=== PATIENT | female | born 1995 | race African-American/Black ===

== ENCOUNTER 2021-02-12 15:38 | Emergency (ER) | payer OTHER, SELFPAY ==
[2021-02-12 15:51] VITALS: BP 115/64; PULSE 91; RESP 16; TEMP 36.9; O2SAT 100
--- NOTE | 2021-02-12 16:03 | ED.SKABFB ---
HPI - Skin/Abscess/Foreign Bdy General Chief complaint: Skin/Abscess/Foreign Body Stated complaint: rash Time Seen by Provider: 02/12/21 16:03 Source: patient Mode of arrival: ambulatory Limitations: no limitations History of Present Illness HPI narrative: She Esquivel is a 25 yo female has a rash around her elbows and what appears to look like welts on her forearms for the last 10 days, some of them are getting better and others are new. She denies any allergies or any skin illnesses that have been diagnosed Related Data Home Medications Medication Instructions Recorded Confirmed Nasal Inhaler 02/12/21 Nexplanon 02/12/21 Allergies Allergy/AdvReac Type Severity Reaction Status Date / Time No Known Drug Allergies Allergy Unknown Verified 02/27/18 12:15 Review of Systems Review of Systems: Narrative: CONSTITUTIONAL: Denies fever, chills, sweats. EYES: Denies visual changes, redness, discharge. ENT: Denies rhinorrhea, congestion, sore throat, otalgia. CARDIOVASCULAR: Denies chest pain, palpitations, edema. RESPIRATORY: Denies dyspnea, wheezing, cough GASTROINTESTINAL: Denies abdominal pain, nausea, vomiting, diarrhea. GENITOURINARY: Denies dysuria, hematuria, abnormal discharge SKIN: Denies rash or itching. Has patches of small lesions and patches of what appears to be hives bilateral forearms 1 on right side NEUROLOGIC: Denies numbness, or focal weakness. PSYCHIATRIC: Denies anxiety or depression. [facility] Past Medical History Medical History No acute medical problems Family History Family History Other Diabetes mellitus Social History Social History (Updated 02/12/21 @ 16:10 by Nava Ramirez CNP) Smoking status: Never smoker Alcohol intake: current Comments At time of signature, I agree with nursing past medical, surgical, social and family history. There is no relevant family history pertinent to the presenting complaint. Exam Narrative: Exam Narrative: GENERAL: This is a well-nourished, well-developed patient, in mild distress. HEAD: normocephalic, atraumatic. EYES:Sclera clear/white. Vision is grossly intact. EARS: External ears normal,. Hearing grossly intact. NOSE: External nose normal without nasal discharge, nares without redness, no rhinorrhea. THROAT: Mucous membranes moist, NECK: Neck supple, CARDIOVASCULAR: Regular rate and rhythm without murmurs, gallops, or rubs. RESPIRATORY: Clear to auscultation. Breath sounds equal bilaterally. No wheezes, rales, or rhonchi. GASTROINTESTINAL: Abdomen soft, SKIN: warm, intact with large hive-like blotches on the forearms and on right neck and small pruritic rash around elbows NEURO: awake, alert, and oriented to person, place and time. There were no obvious focal neurologic abnormalities. Steady gait EXTREMITIES: Normal range of motion. BACK: Nontender without deformity Course Course Emergency Course: Patient states that lesion started about 10 days ago Started on Medrol, pepcid, Benadryl Follow-up with primary care physician as patient is interested in whether she has diabetes or not as runs in the family Vital Signs Vital signs: Vital Signs Temperature 98.5 F 02/12/21 15:51 Pulse Rate 91 02/12/21 15:51 Respiratory Rate 16 02/12/21 15:51 Blood Pressure 115/64 02/12/21 15:51 Pulse Oximetry 100 02/12/21 15:51 Temperature 98.5 F 02/12/21 15:51 Pulse Rate 91 02/12/21 15:51 Respiratory Rate 16 02/12/21 15:51 Blood Pressure 115/64 02/12/21 15:51 Pulse Oximetry 100 02/12/21 15:51 MDM - Skin/Abscess/Foreign Bdy Differential Diagnosis Differential diagnosis: Likely abscess of skin or subcutaneous tissue, urticaria, insect bites and contact dermatitis Critical Care Time Critical Care Time Critical Care Time: No Discharge Plan Discharge Clinical Impression: Urticaria
== END 2021-02-12 16:17 | disposition home or self-care (01) ==
PROVIDERS: Emergency Provider Nurse Practitioner; PCP Physician Assistant
DX: L50.9 Urticaria, unspecified (principal); J45.909 Unspecified asthma, uncomplicated
CPT/HCPCS: 99213; G0463

== ENCOUNTER 2022-07-16 16:07 | Emergency (ER) | payer OTHER, SELFPAY ==
--- NOTE | 2022-07-16 16:13 | ED.URI ---
HPI - URI/Sore Throat General Chief Complaint: Upper Respiratory Infection Stated Complaint: Sore Throat Time Seen by Provider: 07/16/22 16:37 Source: patient and RN notes reviewed Mode of arrival: ambulatory Limitations: no limitations History of Present Illness HPI Narrative: 27-year-old female presents concern for 4 day history of sore throat, headache, bad breath, foul taste in her mouth. She denies cough, runny nose, stuffy nose, fever. 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 She denies drooling or difficulty swallowing MD elicited complaint: sore throat Related Data Home Medications Medication Instructions Recorded Confirmed Nexplanon 02/12/21 Allergies Allergy/AdvReac Type Severity Reaction Status Date / Time No Known Drug Allergies Allergy Unknown Other Verified 07/16/22 16:16 Review of Systems Review of Systems: CONSTITUTIONAL: Reports malaise. Denies chills, sweats, or fever. EYES: Denies visual changes, redness, or discharge. ENT: Denies rhinorrhea, congestion, sinus pain, otalgia. Reports sore throat. CARDIOVASCULAR: Denies chest pain, palpitations, or edema. RESPIRATORY: Denies cough. Denies dyspnea. GASTROINTESTINAL: Denies abdominal pain, nausea, vomiting, diarrhea SKIN: Denies rash or itching. MUSCULOSKELETAL: Reports myalgia. NEUROLOGIC: Reports headache. All systems reviewed & are unremarkable except as noted in HPI and below PMFSH Past Medical History Medical History No acute medical problems Family History Family History Other Diabetes mellitus Social History Social History (Updated 02/12/21 @ 16:10 by Nava Ramirez, [place]) Smoking status: Never smoker Alcohol intake: current Comments At time of signature, agree with nursing past medical, surgical, social and family history. There is no relevant family history pertinent to the presenting complaint Exam Narrative: GENERAL: Well-appearing, well-nourished, and in no acute distress. HEAD: Normocephalic EYES: PERRLA, conjunctivae clear ENT: Nares clear, no discharge. Mucous membranes moist. TM pearly gonzalez with dull light reflex bilaterally; no tragal tenderness. Oropharynx erythematous without lesions. Tonsils enlarged, 3+ and with copious white exudate, no drooling, no hoarseness, no trismus, uvula midline. NECK: Supple. No lymphadenopathy CHEST: Clear to auscultation, breath sounds equal. No wheezing, rhonchi, rales, or stridor. No respiratory distress, speaks in full sentences. HEART: Regular rate and rhythm. No murmur heard. SKIN: Warm, dry, no rash. NEURO: Alert and oriented x3. PSYCH: Normal mood and affect Course Course Emergency Course: Patient is aware of diagnosis, understands and agrees to treatment plan. Anticipatory guidance given. Patient agrees to follow-up as directed and is aware of reasons to seek care at the emergency department. Portions of this record may have been created with voice recognition software Level of Care: Express Care Visit Vital Signs Vital signs: Reviewed. MDM - URI/Sore Throat MDM Narrative Medical decision making narrative: Differential diagnosis considered: Lopez virus, strep pharyngitis, allergic rhinitis, upper respiratory tract infection, sinusitis, rhinosinusitis, nasopharyngitis. viral pharyngitis, otitis media, otitis externa, pneumonia, bronchitis, viral cough syndrome, viral syndrome, and influenza. Exam findings show no acute concerns or changes; patient is non-toxic appearing and is in no distress. Patient is appropriate for outpatient treatment and follow-up. Lab Data Attestation: I reviewed the patient's lab results. Critical Care Time Critical Care Time Critical Care Time: No Discharge Plan Discharge Clinical Impression: Acute tonsillitis Patient Disposition: Home, Self-Care Condition: Stable Instructions: Antib
[2022-07-16 16:14] VITALS: BP 107/64; PULSE 77; RESP 16; TEMP 36.9; O2SAT 99
== END 2022-07-16 16:50 | disposition home or self-care (01) ==
PROVIDERS: Emergency Provider Nurse Practitioner; PCP Physician Assistant
DX: J03.90 Acute tonsillitis, unspecified (principal); J45.909 Unspecified asthma, uncomplicated
CPT/HCPCS: 87081; 87880; 99213; G0463

== ENCOUNTER 2022-09-08 11:31 | Emergency (ER) | payer OTHER, SELFPAY ==
--- NOTE | 2022-09-08 11:40 | ED.URI ---
HPI - URI/Sore Throat General Chief Complaint: Upper Respiratory Infection Stated Complaint: sore throat / left knee pain Time Seen by Provider: 09/08/22 12:07 Source: patient and RN notes reviewed Mode of arrival: ambulatory Limitations: no limitations History of Present Illness HPI Narrative: 27-year-old female presents concern for day history of sore throat with white spots on her tonsils, pain in the right ear, painful swallowing. Reports she also fell 4 days ago and has had left knee pain. She denies swelling, bruising to the knee. She denies taking any medications other than NyQuil. MD elicited complaint: cough and sore throat Related Data Allergies Allergy/AdvReac Type Severity Reaction Status Date / Time No Known Drug Allergies Allergy Unknown Other Verified 09/08/22 11:43 Review of Systems Review of Systems: CONSTITUTIONAL: Reports malaise. Denies chills, sweats, or fever. EYES: Denies visual changes, redness, or discharge. ENT: Denies rhinorrhea, congestion, sinus pain. Reports otalgia and sore throat. CARDIOVASCULAR: Denies chest pain, palpitations, or edema. RESPIRATORY: Denies cough. Denies dyspnea. GASTROINTESTINAL: Denies abdominal pain, nausea, vomiting, diarrhea SKIN: Denies rash or itching. MUSCULOSKELETAL: Denies myalgia. Reports left knee pain NEUROLOGIC: Denies headache. All systems reviewed & are unremarkable except as noted in HPI and below PMFSH Past Medical History Medical History No acute medical problems Family History Family History Other Diabetes mellitus Social History Social History (Updated 02/12/21 @ 16:10 by Nava Ramirez, [place]) Smoking status: Never smoker Alcohol intake: current Comments At time of signature, agree with nursing past medical, surgical, social and family history. There is no relevant family history pertinent to the presenting complaint Exam Narrative: GENERAL: Nontoxic appearing and in no acute distress. HEAD: Normocephalic EYES: PERRLA, conjunctivae clear ENT: Nares clear, no discharge. Mucous membranes moist. TM pearly gonzalez with dull light reflex bilaterally; no tragal tenderness. Oropharynx erythematous without lesions. Tonsils enlarged with exudate, no drooling, no hoarseness, no trismus, uvula midline. NECK: Supple. No lymphadenopathy CHEST: Clear to auscultation, breath sounds equal. No wheezing, rhonchi, rales, or stridor. No respiratory distress, speaks in full sentences. HEART: Regular rate and rhythm. No murmur heard. SKIN: Warm, dry, no rash. MUSC: Left knee without acute swelling, tenderness movement skin NEURO: Alert and oriented x3. PSYCH: Normal mood and affect Course Course Emergency Course: Patient is aware of diagnosis, understands and agrees to treatment plan. Anticipatory guidance given. Patient agrees to follow-up as directed and is aware of reasons to seek care at the emergency department. Portions of this record may have been created with voice recognition software Level of Care: Express Care Visit Vital Signs Vital signs: Reviewed. MDM - URI/Sore Throat MDM Narrative Medical decision making narrative: Differential diagnosis considered: Lopez virus, strep pharyngitis, allergic rhinitis, upper respiratory tract infection, sinusitis, rhinosinusitis, nasopharyngitis. viral pharyngitis, otitis media, otitis externa, pneumonia, bronchitis, viral cough syndrome, viral syndrome, and influenza. Exam findings show no acute concerns or changes; patient is non-toxic appearing and is in no distress. Patient is appropriate for outpatient treatment and follow-up. Lab Data Attestation: I reviewed the patient's lab results. Critical Care Time Critical Care Time Critical Care Time: No Discharge Plan Discharge Clinical Impression: Acute streptococcal pharyngitis, Knee pain Patient Disposition: Home, Self-Care
[2022-09-08 11:41] VITALS: BP 110/60; PULSE 96; RESP 14; TEMP 36.3; O2SAT 100
[2022-09-08 11:44] VITALS: BP 110/60; PULSE 96; RESP 14; TEMP 36.3; O2SAT 100
== END 2022-09-08 12:16 | disposition home or self-care (01) ==
PROVIDERS: Emergency Provider Nurse Practitioner; PCP Physician Assistant
DX: J02.0 Streptococcal pharyngitis (principal); M25.562 Pain in left knee
CPT/HCPCS: 87880; 99213; G0463

== ENCOUNTER 2022-11-13 21:05 | Emergency (ER) | payer OTHER, SELFPAY ==
--- NOTE | ~2022-11-13 | XR_ITS ---
EXAMINATION: XR foot LT min 3V DATE: 11/13/2022 22:23 INDICATION: Left foot pain TECHNIQUE: Dorsoplantar, lateral, and 2 oblique views of the left foot were obtained. COMPARISON: None FINDINGS: There appears to be dorsolateral subluxation of the third middle phalanx with respect to th e proximal phalanx. No fracture is identified. There is dorsal soft tissue swelling of the foot overl demetris the metatarsals. IMPRESSION: 1. Apparent dorsolateral subluxation of the third middle phalanx with respect to the proximal phalanx . Reviewed, dictated and finalized at location F. IMPRESSION: 1. Apparent dorsolateral subluxation of the third middle phalanx with respect t o the proximal phalanx.
--- NOTE | ~2022-11-13 | XR_ITS ---
EXAMINATION: XR toe 3rd LT min 2V DATE: 11/14/2022 00:29 INDICATION: Left third toe dislocation status post reduction. TECHNIQUE: 4 views of left third toe were obtained. COMPARISON: Left third toe radiographs 11/13/2022 FINDINGS: Bone alignment is normal. No fracture. Joint spaces are well maintained. IMPRESSION: 1. Normal alignment. Reviewed, dictated and finalized at location A. IMPRESSION: 1. Normal alignment.
[2022-11-13 21:06] VITALS: BP 118/63; PULSE 89; RESP 16; TEMP 36.7; O2SAT 100
--- NOTE | 2022-11-13 23:58 | PC.NURSE ---
Pt c/o left 3rd toe pain after she fell down the stairs. Small cut noted under her toe. 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
--- NOTE | 2022-11-13 23:58 | ED.LOWEXIN ---
HPI - Extremity Injury (Lower) General Chief Complaint: Extremity Injury, Lower Stated Complaint: left middle toe injury, fell down steps Time Seen by Provider: 11/13/22 23:52 History of Present Illness HPI Narrative: 27-year-old female here for evaluation of middle toe pain for the past several hours. Patient states that her pain began after she fell down several steps. She denies any other injury, no head injury or loss of consciousness. She has not taken any medicine for her pain. Reports deformity and pain to her middle toe. Related Data Allergies Allergy/AdvReac Type Severity Reaction Status Date / Time No Known Drug Allergies Allergy Unknown Other Verified 11/13/22 21:05 Review of Systems Review of Systems: Gen.: Denies fevers or chills Eyes: Denies eye pain or visual change ENT: Denies congestion Respiratory: Denies shortness of breath or cough CV: Denies chest pain or palpitations GI: Denies abdominal pain nausea, emesis or diarrhea denies burning, urgency, frequency or hematuria Musculoskeletal: Reports pain to middle toe Neuro: Denies numbness, tingling, weakness or focal weakness Skin: Denies rash Except as documented, all other systems reviewed and negative PMFSH Past Medical History Medical History No acute medical problems Family History Family History Other Diabetes mellitus Social History Social History (Updated 02/12/21 @ 16:10 by Nava Ramirez, [place]) Smoking status: Never smoker Alcohol intake: current Exam Narrative: APPEARANCE: Well appearing, no pain in distress, well-nourished. Head: Normocephalic and atraumatic. EYES: PERRLA/EOMI, conjunctivae clear NOSE: No nasal drainage EARS: External ear normal in appearance THROAT: Oropharynx is clear. Mucous membranes are moist. NECK: Supple. No adenopathy, no masses. RESPIRATORY: Airway patent, respirations nonlabored. Clear to auscultation bilaterally, no rales, rhonchi, wheezing. CARDIOVASCULAR: Regular rate and rhythm without murmurs, rubs, or gallops. ABDOMINAL: Normoactive bowel sounds. Soft, nontender, nondistended. No rebound tenderness or guarding. MUSCULOSKELETAL: Deformity to the right middle toe, no bony tenderness to palpation NEURO: Normal speech. No focal neurologic deficits. SKIN: There is a small abrasion to the plantar aspect of the base of third toe with no active bleeding PSYCHIATRIC: Normal affect/mood. Course Vital Signs Vital signs: Vital Signs Temperature 98.0 F 11/13/22 21:06 Pulse Rate 89 11/13/22 21:06 Respiratory Rate 16 11/13/22 21:06 Blood Pressure 118/63 11/13/22 21:06 Pulse Oximetry 100 11/13/22 21:06 Oxygen Delivery Room Air 11/13/22 21:06 Temperature 98.0 F 11/13/22 21:06 Pulse Rate 89 11/13/22 21:06 Respiratory Rate 16 11/13/22 21:06 Blood Pressure 118/63 11/13/22 21:06 Pulse Oximetry 100 11/13/22 21:06 Oxygen Delivery Room Air 11/13/22 21:06 Procedures Orthopedic Joint Reduction Joint #1: Orthopedic Joint Reduction Date: 11/14/22 Orthopedic Joint Reduction Time: 00:01 Time Out Performed: Yes Side: right Joint Reduction Location: toe Analgesia: none Pre-Procedure Neuro Vascular Exam: normal Technique used: traction/counter-traction Post-reduction neuro exam: intact Post-reduction vascular: intact Post Reduction X-Ray Obtained: Yes Post Reduction X-Ray Results: reduced Splint Applied: No (isa tape) Patient Tolerated Procedure: well MDM - Extremity Injury (Lower) MDM Narrative Medical decision making narrative: 27-year-old female here due to pain and deformity to the third toe after she fell down some several steps; she has evidence of a toe dorsolateral subluxation on plain films. This was reduced in the ED without difficulty, patient kimberly
== END 2022-11-14 01:06 | disposition home or self-care (01) ==
PROVIDERS: Emergency Provider Physician Assistant; PCP Physician Assistant
DX: S93.104A Unspecified dislocation of right toe(s), initial encounter (principal); W10.9XXA Fall (on) (from) unspecified stairs and steps, initial encounter
CPT/HCPCS: 28660; 73630; 73660; 99285

== ENCOUNTER 2023-03-29 10:31 | Emergency (ER) | payer OTHER, SELFPAY ==
[2023-03-29 10:48] VITALS: BP 113/60; PULSE 75; RESP 16; TEMP 36.8; O2SAT 98
--- NOTE | 2023-03-29 10:51 | ED.URI ---
HPI - URI/Sore Throat General Chief Complaint: Upper Respiratory Infection Stated Complaint: Sore Throat Time Seen by Provider: 03/29/23 10:52 History of Present Illness HPI Narrative: 27 y/o female presented for c/o sore throat with headache, body aches, chills for 3 days. Reports painful swallow. Reports white spots on tonsils. Denies sick contacts. Denies sob, wheezing, difficulty maintaining secretions, n/v/d. Taking ibuprofen. Related Data Allergies Allergy/AdvReac Type Severity Reaction Status Date / Time No Known Drug Allergies Allergy Unknown Other Verified 11/13/22 21:05 Review of Systems Review of Systems: CONSTITUTIONAL: reports body aches, fever, chills, sweats. EYES: Denies visual changes, redness, or discharge. ENT: reports sore throat Denies rhinorrhea, congestion, or otalgia. CARDIOVASCULAR: Denies chest pain, palpitations, or edema. RESPIRATORY: Denies dyspnea. GASTROINTESTINAL: Denies abdominal pain, nausea, vomiting, or diarrhea. SKIN: Denies rash, itching, or wounds. MUSCULOSKELETAL: Denies back pain, joint pain, or myalgia. NEUROLOGIC: reports headache PMFSH Past Medical History Medical History No acute medical problems Family History Family History Other Diabetes mellitus Social History Social History Smoking status: Never smoker Alcohol intake: current Exam Narrative: GENERAL: mildly Ill-appearing, no acute distress. EYES: conjunctivae clear ENT: Mucous membranes moist. TMs pearly gonzaelz with normal light reflex bilaterally; no tragal tenderness. Oropharynx erythematous, Tonsils enlarged 3+ with exudate. No drooling, no hoarseness, no trismus, uvula midline. No tripod positioning, hot potato voice, or soft palate swelling. NECK: Supple. No lymphadenopathy CHEST: Clear to auscultation, breath sounds equal. No respiratory distress, speaks in full sentences. HEART: Regular rate and rhythm. No murmur heard. SKIN: Warm, dry, no rash. NEURO: Alert and oriented x3. Course Course Emergency Course: Patient is aware of diagnosis, understands and agrees to treatment plan. Anticipatory guidance given. Patient agrees to follow-up as directed and is aware of reasons to seek care at the emergency department. Portions of this record may have been created with voice recognition software Level of Care: Express Care Visit Vital Signs Vital signs: Vital Signs Temperature 98.2 F 03/29/23 10:48 Pulse Rate 75 03/29/23 10:48 Respiratory Rate 16 03/29/23 10:48 Blood Pressure 113/60 03/29/23 10:48 Pulse Oximetry 98 03/29/23 10:48 Oxygen Delivery Room Air 03/29/23 10:48 Temperature 98.2 F 03/29/23 10:48 Pulse Rate 75 03/29/23 10:48 Respiratory Rate 16 03/29/23 10:48 Blood Pressure 113/60 03/29/23 10:48 Pulse Oximetry 98 03/29/23 10:48 Oxygen Delivery Room Air 03/29/23 10:48 MDM - URI/Sore Throat MDM Narrative Medical decision making narrative: POS strep result reviewed with pt. Advise supportive treatments. Patient is appropriate for outpatient treatment and follow-up. Differential Diagnosis Differential diagnosis: Likely upper respiratory infection, viral infection and pharyngitis Discharge Plan Discharge Clinical Impression: Strep pharyngitis Patient Disposition: Home, Self-Care Condition: Stable Instructions: Antibiotic Form, Strep Throat (ED) Additional Instructions: - Take the antibiotic as directed. Fever and sore throat typically resolve within one to three days. Most patients can return to work after 12 to 24 hours of antibiotic therapy, provided you are fever free and otherwise well. -Eat and drink things that are easy to swallow, like soft foods, cool liquids, tea with honey, or popsicles . -Salt water gargles and/or may use topical anes
== END 2023-03-29 11:02 | disposition home or self-care (01) ==
PROVIDERS: Emergency Provider Nurse Practitioner Family; PCP Physician Assistant
DX: J02.0 Streptococcal pharyngitis (principal)
CPT/HCPCS: 87880; 99213; G0463

== ENCOUNTER 2023-06-15 08:35 | Emergency (ER) | payer OTHER, SELFPAY ==
[2023-06-15 08:42] VITALS: BP 109/65; PULSE 77; RESP 16; TEMP 36.4; O2SAT 99
--- NOTE | 2023-06-15 08:54 | ED.URI ---
HPI - URI/Sore Throat General Chief Complaint: Upper Respiratory Infection Stated Complaint: Sore Throat Time Seen by Provider: 06/15/23 08:54 History of Present Illness HPI Narrative: 28-year-old female presented for complaint of sore throat, runny nose, and cough over the past week. Denies painful swallow or difficulty maintaining secretions. She denies shortness of breath, wheezing, nausea, vomiting, fevers or chills. She has taken Robitussin and NyQuil for symptoms. Denies sick contacts. Patient was last treated for strep pharyngitis 03/2023. Related Data Allergies Allergy/AdvReac Type Severity Reaction Status Date / Time No Known Drug Allergies Allergy Unknown Other Verified 06/15/23 08:40 Review of Systems Review of Systems: CONSTITUTIONAL: Denies body aches, fever, chills, or sweats. EYES: Denies visual changes, redness, or discharge. ENT: reports rhinorrhea, congestion, sore throat CARDIOVASCULAR: Denies chest pain, palpitations, or edema. RESPIRATORY: reports cough Denies dyspnea. GASTROINTESTINAL: Denies abdominal pain, nausea, vomiting, or diarrhea. SKIN: Denies rash, itching, or wounds. MUSCULOSKELETAL: Denies back pain, joint pain, or myalgia. NEUROLOGIC: Denies headache PMFSH Past Medical History Medical History No acute medical problems Family History Family History Other Diabetes mellitus Social History Social History Smoking status: Never smoker Alcohol intake: current Exam Narrative: GENERAL: mildly Ill-appearing, no acute distress. EYES: conjunctivae clear ENT: Mucous membranes moist. TM pearly gonzalez with normal light reflex bilaterally; no tragal tenderness. Oropharynx erythematous Tonsils enlarged 2+ with exudate. No drooling, no hoarseness, no trismus, uvula midline. No tripod positioning, hot potato voice, or soft palate swelling. NECK: Supple. No lymphadenopathy CHEST: Clear to auscultation, breath sounds equal. No respiratory distress, speaks in full sentences. HEART: Regular rate and rhythm. No murmur heard. SKIN: Warm, dry, no rash. NEURO: Alert and oriented x3. Course Course Emergency Course: Patient is aware of diagnosis, understands and agrees to treatment plan. Anticipatory guidance given. Patient agrees to follow-up as directed and is aware of reasons to seek care at the emergency department. Portions of this record may have been created with voice recognition software Level of Care: Express Care Visit Vital Signs Vital signs: Vital Signs Temperature 97.6 F 06/15/23 08:42 Pulse Rate 77 06/15/23 08:42 Respiratory Rate 16 06/15/23 08:42 Blood Pressure 109/65 06/15/23 08:42 Pulse Oximetry 99 06/15/23 08:42 Oxygen Delivery Room Air 06/15/23 08:42 Temperature 97.6 F 06/15/23 08:42 Pulse Rate 77 06/15/23 08:42 Respiratory Rate 16 06/15/23 08:42 Blood Pressure 109/65 06/15/23 08:42 Pulse Oximetry 99 06/15/23 08:42 Oxygen Delivery Room Air 06/15/23 08:42 MDM - URI/Sore Throat MDM Narrative Medical decision making narrative: neg strep result reviewed with pt. Advise supportive treatments. Patient is appropriate for outpatient treatment and follow-up. Differential Diagnosis Differential diagnosis: Likely upper respiratory infection, viral infection and pharyngitis Discharge Plan Discharge Clinical Impression: Upper respiratory infection Patient Disposition: Home, Self-Care Condition: Stable Instructions: Antibiotic Form, Upper Respiratory Infection (ED) Additional Instructions: Rapid strep swab was negative today You will be notified in a few days if the culture comes back positive for strep, and appropriate antibiotics will be called in at that time. if symptoms are due to a viral illness, it is not treated wit
== END 2023-06-15 09:19 | disposition home or self-care (01) ==
PROVIDERS: Emergency Provider Nurse Practitioner Family; PCP Physician Assistant
DX: J06.9 Acute upper respiratory infection, unspecified (principal)
CPT/HCPCS: 87081; 87880; 99213; G0463